=== PATIENT | female | born 1975 | race Two or more races ===

== ENCOUNTER 2019-11-30 10:23 | Emergency (ER) | payer MEDICAID ==
[~2019-11-30] VITALS: Ht 154.9 cm; Wt 78.5 kg
[2019-11-30 10:37] VITALS: Ht 154.9 cm; Wt 78.5 kg
[2019-11-30] MEDS ORDERED: OMEPRAZOLE20 M1 PO (10:51)
[2019-11-30] MEDS ORDERED: CARAFATE1 G PO (10:51)
[2019-11-30 11:22] LABS: HCG URINE POSITIVE (NEGATIVE)
[2019-11-30 11:23] LABS: BILIRUBIN NEGATIVE (NEGATIVE); GLUCOSE NEGATIVE (NEGATIVE); KETONE NEGATIVE (NEGATIVE); NITRITE NEGATIVE (NEGATIVE); SPECIFIC GRAVITY 1.015 (1.005-1.020); UROBILINOGEN NORMAL (NORMAL)
[2019-11-30 11:24] LABS: BACTERIA MANY /hpf (NEGATIVE); EPITHELIAL CELLS 0-5 /hpf (0-5); RED CELLS - URINE >50 /hpf (0-5); WHITE CELLS - URINE 0-5 /hpf (NEGATIVE)
[2019-11-30 14:46] VITALS: BP 128/86
== END 2019-11-30 14:46 | disposition home or self-care (01) ==
LOC: D.ER 10:23
PROVIDERS: Family Medicine
DX: O20.0 Threatened abortion (principal); O20.9 Hemorrhage in early pregnancy, unspecified; K21.9 Gastro-esophageal reflux disease without esophagitis

== ENCOUNTER 2019-12-02 10:04 | Emergency (ER) | payer MEDICAID ==
[~2019-12-02] VITALS: Ht 154.9 cm; Wt 68.2 kg
[~2019-12-02 10:04] MED LIST: CARAFATE1 G PO; OMEPRAZOLE20 M1 PO
[2019-12-02 10:10] VITALS: Ht 154.9 cm; Wt 68.2 kg
[2019-12-02 11:15] VITALS: BP 134/50
== END 2019-12-02 11:40 | disposition home or self-care (01) ==
LOC: D.ER 10:04
DX: O03.9 Complete or unspecified spontaneous abortion without complication (principal); K21.9 Gastro-esophageal reflux disease without esophagitis